=== PATIENT | male | born 1985 | race Asian ===

== ENCOUNTER 2019-04-26 22:08 | Inpatient (IN) | payer OTHER ==
[~2019-04-26] VITALS: Ht 172.7 cm; Wt 55.4 kg
[2019-04-26] MEDS ORDERED: SODIUM CHLORIDE 0.9% 1,000 ML IV ONE (22:45)
[2019-04-26 23:58] LABS: BASOPHILS % (AUTO) 0.1 % (0.0-2.0); EOSINOPHILS % (AUTO) 0 % (1.0-6.0); HEMATOCRIT 46.4 % (41-53); HEMOGLOBIN 15.7 g/dL (13.5-17.5); LYMPHOCYTES # (AUTO) 0.6 K/uL (1.0-4.8); MEAN CORPUSCULAR HEMOGLOBIN 30.4 pg (26.0-34.0); MEAN CORPUSCULAR HGB CONC 33.9 G/dL (31.0-37.0); MEAN CORPUSCULAR VOLUME 90 fL (80-100); MONOCYTES # (AUTO) 0.5 K/uL (0.1-1.0); MONOCYTES % (AUTO) 5.5 % (2.0-9.0); NEUTROPHILS # (AUTO) 8.5 K/uL (1.8-7.7); PLATELET COUNT (AUTO) 260 K/uL (150-450); RED BLOOD CELL COUNT(AUTO) 5.18 MIL/uL (4.50-5.90)
[2019-04-27] LABS: NEUTROPHILS % (AUTO) 88.4 % (40.0-70.0)
[2019-04-27 00:03] LABS: ANION GAP 10 mmol/L (8-16); CALCIUM, TOTAL 9.7 mg/dL (8.8-10.5); CARBON DIOXIDE 29 mmol/L (22-29); CHLORIDE 101 mmol/L (98-107); CREATININE 0.82 mg/dL (0.60-1.30); GLOMERULAR FILTR. RATE CALC > 60 mL/min (>60); GLUCOSE,RANDOM 103 mg/dL (70-110); SODIUM SERUM 140 mmol/L (136-145); UREA NITROGEN, BLOOD 16 mg/dL (7-18)
[2019-04-27 00:10] LABS: ALANINE AMINOTRANSFERASE 25 U/L (12-78); ALBUMIN 4.9 g/dL (3.4-5.0); ALKALINE PHOSPHATASE 67 U/L (46-116); ASPARTATE AMINOTRANSFERASE 15 U/L (15-37); BILIRUBIN,TOTAL 0.8 mg/dL (0.1-1.0); TOTAL PROTEIN, SERUM 8.2 g/dL (6.4-8.2)
[2019-04-27] MEDS ORDERED: ONDANSETRON HCL 4 MG/2 ML VIAL IVP PRN (03:30)
[2019-04-27] MEDS ORDERED: ACETAMINOPHEN 325 MG TABLET PO PRN ×2 (03:30→08:45)
[2019-04-27 04:23] VITALS: BP 122/89
[2019-04-27] MEDS ORDERED: MAGNESIUM HYDROXIDE SUSPENSION 30 ML UDCUP PO PRN (08:45)
[2019-04-27 09:24] VITALS: BP 118/73
[2019-04-27 16:00] VITALS: BP 105/63
[2019-04-27 19:23] VITALS: BP 98/64
[2019-04-28 04:56] VITALS: BP 103/70
[2019-04-28 08:30] VITALS: BP 101/61
[2019-04-28 09:05] LABS: HIV 1-2 SCREEN 4TH GEN W/RFLX Non Reactive (Non Reactive)
[2019-04-28 16:07] LABS: QUANTIFERON+, Nil Value 0.06 IU/mL; QUANTIFERON+,Mitogen Value 9.89 IU/mL; QUANTIFERON+,TB1 Antigen Value 1.84 IU/mL; QUANTIFERON, TB GOLD PLUS Positive (Negative)
[2019-04-28 16:37] VITALS: BP 91/68
[2019-04-28 20:24] VITALS: BP 102/61
[2019-04-29 04:46] VITALS: BP 94/51
[2019-04-29 08:03] VITALS: BP 97/55
[2019-04-29 15:56] VITALS: BP 91/54
[2019-04-29 20:22] VITALS: BP 97/53
[2019-04-30 05:05] VITALS: BP 98/61
[2019-04-30 07:36] VITALS: BP 100/58
[2019-04-30 15:25] VITALS: BP 102/58
[2019-04-30 21:43] VITALS: BP 92/58
[2019-05-01 00:22] VITALS: BP 105/50
[2019-05-01 05:22] VITALS: BP 103/57
[2019-05-01 07:48] VITALS: BP 96/54
[2019-05-01 16:08] VITALS: BP 92/57
[2019-05-01 19:40] VITALS: BP 111/66
== END 2019-05-01 19:49 | DRG 198 ==
LOC: EMS 22:11 → 6S 04-27 03:00
PROVIDERS: ADMIT Internal Medicine; ATTEND Internal Medicine
DX: J84.10 Pulmonary fibrosis, unspecified (principal); R91.8 Other nonspecific abnormal finding of lung field; Z86.11 Personal history of tuberculosis
CPT/HCPCS: 71250; 86480; 87015; 87206; 87389; 87449; 87556; 87798